=== PATIENT | male | born 1970 | race African-American/Black ===

== ENCOUNTER 2021-03-08 08:15 | Emergency (ER) | payer OTHER ==
[~2021-03-08] VITALS: Ht 188 cm; Wt 79.5 kg
[~2021-03-08 08:15] MED LIST: NOCURR
[2021-03-08 08:30] VITALS: BP 115/74
[2021-03-08] MEDS ORDERED: PERTUSS(ACELL),DIPH,TET VAC/PF 0.5 ML SYRINGE IM. ONE (09:45)
== END 2021-03-08 10:33 | disposition home or self-care (01) ==
LOC: EMS 08:20
DX: S01.511A Laceration without foreign body of lip, initial encounter (principal); F12.90 Cannabis use, unspecified, uncomplicated; F17.210 Nicotine dependence, cigarettes, uncomplicated; W18.39XA Other fall on same level, initial encounter; Y93.89 Activity, other specified; Y92.89 Other specified places as the place of occurrence of the external cause; Y99.8 Other external cause status
CPT/HCPCS: 12011; 90471; 90715; 99283